=== PATIENT | female | born 1995 | race African-American/Black ===

== ENCOUNTER 2019-07-07 00:17 | Emergency (ER) | payer MEDICAID ==
[~2019-07-07] VITALS: Ht 165.1 cm; Wt 117.9 kg
[2019-07-07 02:33] VITALS: BP 117/72
== END 2019-07-07 02:37 | disposition home or self-care (01) ==
LOC: EDBD 00:17 → ER 00:20
DX: S93.601A Unspecified sprain of right foot, initial encounter (principal); W17.2XXA Fall into hole, initial encounter; Y93.89 Activity, other specified; Y92.89 Other specified places as the place of occurrence of the external cause; Y99.8 Other external cause status
CPT/HCPCS: 73610